=== PATIENT | male | born 1955 | race Caucasian/White ===

== ENCOUNTER 2017-06-11 06:45 | Day surgery (SDC) | payer BC ==
[~2017-06-11 06:45] MED LIST: Lactated Ringers 1,000 ML IV SCH
[2017-06-11] MEDS ORDERED: Propofol 200 MG/20 ML SDV IV ONE (08:00)
[2017-06-11] MEDS ORDERED: Midazolam 1 MG/ML 2 ML SDV IV ONE (08:00)
--- NOTE | 2017-06-11 08:31 | PCM.OPNOTE ---
- General Post-Op/Procedure Note Date of Surgery/Procedure: 06/11/17 Operative Procedure(s): c scope with bx Findings: rectal polyp sigmoid diverticulosis Pre Op Diagnosis: hx of colon polyps Post-Op Diagnosis: rectal polyp. sigmoid diverticulosis Anesthesia Technique: MAC Primary Surgeon: Lawson Lantigua Anesthesia Provider: Kiersetn Núñez Pathology: rectal polyp Complications: None Condition: Good Free Text/Narrative:: see dictation
--- NOTE | 2017-06-11 08:57 | OR ---
DATE OF OPERATION: 06/11/2017 SURGEON: Lawson Lantigua MD PROCEDURE PERFORMED: Colonoscopy with cold forceps biopsy. PREOPERATIVE DIAGNOSIS: History of colon polyps. POSTOPERATIVE DIAGNOSIS: Rectal polyp and sigmoid diverticulosis. INDICATIONS FOR PROCEDURE: This 61-year-old white male presents for a followup colonoscopy, has a personal history of adenomatous colon polyps. He was offered and accepted C scope. DESCRIPTION OF OPERATION: After an excellent IV sedation was administered, digital rectal exam was performed. No marked abnormality was noted. Flexible colonoscope was inserted and advanced without difficulty to the cecum. The prep was excellent. The following findings were noted. Ascending colon, unremarkable. Transverse colon, unremarkable. Descending colon, unremarkable. Sigmoid, mild diverticulosis. Rectum; at the distal rectum, small polypoid lesion biopsied with cold biopsy forceps and sent for permanent. The colon was deflated as the scope was removed. The patient tolerated the procedure well, and was taken to recovery room in good condition. /[id number] KELSY/AMAN
== END 2017-06-11 09:53 | disposition home or self-care (01) ==
LOC: FB.SDS 06:45
PROVIDERS: ATTEND Surgery
DX: Z12.11 Encounter for screening for malignant neoplasm of colon (principal); K62.1 Rectal polyp; K57.30 Diverticulosis of large intestine without perforation or abscess without bleeding; I25.10 Atherosclerotic heart disease of native coronary artery without angina pectoris; E11.9 Type 2 diabetes mellitus without complications; I10 Essential (primary) hypertension; E78.00 Pure hypercholesterolemia, unspecified; E66.9 Obesity, unspecified; Z95.1 Presence of aortocoronary bypass graft; Z86.010 Personal history of colon polyps; Z98.890 Other specified postprocedural states; Z87.891 Personal history of nicotine dependence; Z79.899 Other long term (current) drug therapy
CPT/HCPCS: 45380; 82962; 88305; 93005; J2250; J2704; J7120

== ENCOUNTER 2020-05-10 06:46 | Day surgery (SDC) | payer MEDICARE, BC ==
[~2020-05-10 06:46] MED LIST changes: +Sodium Chloride 0.9% 10 ML Syringe FLUSH PRN
[2020-05-10] MEDS ORDERED: ePHEDrine 50 MG/ML SDV IV ONE (06:47)
[2020-05-10] MEDS ORDERED: Midazolam 1 MG/ML 2 ML SDV IV ONE (06:47)
[2020-05-10] MEDS ORDERED: Propofol 200 MG/20 ML SDV IV ONE (06:47)
[2020-05-10] MEDS ORDERED: Ondansetron 4 MG/2 ML SDV IVPUSH ONE (06:47)
[2020-05-10] MEDS ORDERED: Phenylephrine 1% 10 MG/ML SDV IV ONE (06:47)
[2020-05-10] MEDS ORDERED: fentaNYL 100 MCG/2 ML SDV IV ONE (06:47)
[2020-05-10] MEDS ORDERED: Lidocaine 1% PF 2 ML SDV INJECT ONE (06:47)
[2020-05-10] MEDS ORDERED: Sodium Chloride 0.9% 10 ML Syringe IV ONE (06:47)
[2020-05-10] MEDS ORDERED: Dexmedetomidine 200 MCG/2 ML SDV IV ONE (06:47)
[2020-05-10] MEDS ORDERED: ceFAZolin 2 GM in Premix Bag 1 BAG IV ONE (08:00)
[2020-05-10] MEDS ORDERED: Lidocaine 1% with EPINEPHrine 1:100,000 20 ML MDV INJECT ONE (08:18)
[2020-05-10] MEDS ORDERED: Bupivacaine 0.5% 30 ML SDV INJECT ONE (08:18)
--- NOTE | 2020-05-10 08:58 | PCM.OPNOTE ---
- General Post-Op/Procedure Note Date of Surgery/Procedure: 05/10/20 ( ) Operative Procedure(s): rih repair Findings: indirect hernia cord lipoma Pre Op Diagnosis: rih without obstruction or gangrene Post-Op Diagnosis: Same Anesthesia Technique: Local (10 ml 1 % lido with epi/0.5% buvipicaine), MAC Primary Surgeon: Lawson Lantigua Anesthesia Provider: Taylor Newman Pathology: cord lipoma EBL in mLs: 5 Complications: None Condition: Good Free Text/Narrative:: #[id number] see dictation
[2020-05-10] MEDS ORDERED: Acetaminophen/HYDROcodone 325-5 MG Tab PO PRN (09:23)
--- NOTE | 2020-05-10 10:44 | OR ---
DATE OF OPERATION: 05/10/2020 SURGEON: Lawson Lantigua MD PROCEDURE PERFORMED: Right inguinal hernia. PREOPERATIVE DIAGNOSIS: Indirect right inguinal hernia. POSTOPERATIVE DIAGNOSIS: Indirect right inguinal hernia. INDICATIONS FOR PROCEDURE: This is a 64-year-old white male, who is referred with some groin discomfort. While he did not have a palpable inguinal hernia on CT scan, he was noted to have a small fat-filled hernia. He was offered and accepted a repair. INTRAOPERATIVE FINDINGS: 1. 10 mL of 1:1 mixture of 1% lidocaine with epinephrine and 0.5% bupivacaine was used to infiltrate our surgical site. 2. The defect was repaired with a Phasix plug and patch, size large, reference number [id number], lot number [id number], expiration date 08/11/2021. DESCRIPTION OF OPERATION: After an excellent LMA anesthetic was administered, the patient was prepped and draped in the usual sterile manner. Our local was used to infiltrate the planned incision site, which basically involved the line that intercepted the inguinal ligament approximately custodial between the anterior-superior iliac spine and the symphysis pubis. A small skin wheal was then raised medially to the anterior-superior iliac spine and a deep intramuscular injection was carried out. Local was then infiltrated from this site to the direction of the umbilicus and down below and along the inguinal ligament to create a field block. A 5 cm incision was then made. Underlying subcu fat was divided using electrocautery. Superficial inferior epigastric vessels were clamped, divided, and tied with 2-0 Vicryl ties. The aponeurosis of the external oblique was exposed. More local was infiltrated. A ibeth was made in the aponeurosis and carried out through the external ring. The ilioinguinal nerve or a branch thereof appeared to be running along the cord. Care was taken not to injure it. The cord was then mobilized and controlled with 1 inch Paddy drain. The cord was skeletonized. A small inguinal hernia sac was identified and reduced. The patient also had a cord lipoma which was dissected down to its base, clamped, divided, and tied with 2-0 Vicryl ties. This was passed off the field for pathologic examination. The plug was then inserted into the internal ring, tacked into position with three 3-0 Vicryls. The overlay patch was then measured, laid on the floor of the inguinal canal with a keyhole cut for the spermatic cord. The nerve that was running along the spermatic cord had some fat imbricated to prevent the nerve from rubbing up against the mesh. Superiorly, there was another small branch of the nerve, presumably the general femoral that would be encompassed by the mesh and this was clamped, divided, and tied with 2-0 Vicryl tie to prevent neuroma formation. The inferior aspect of the mesh was then suture ligated to the inguinal ligament. A vertical keyhole, which had been cut for the internal ring, was then used to recreate the internal ring, and this was closed with a running 2-0 Vicryl as well. SorbaFix was used to fix the mesh to the floor of the inguinal canal. The area was irrigated and after assuring excellent hemostasis, the aponeurosis was closed with a running 3-0 Vicryl. 3-0 Vicryl was used to approximate Dallin's fascia and a running subcu 4-0 Vicryl was used to close the skin. Needle, sponge, and instrument counts were reported as correct. The patient was taken to recovery in good condition. /[id number] /MODL
== END 2020-05-10 11:15 | disposition home or self-care (01) ==
LOC: FB.SDS 06:46
PROVIDERS: ATTEND Surgery
DX: K40.90 Unilateral inguinal hernia, without obstruction or gangrene, not specified as recurrent (principal); I10 Essential (primary) hypertension; I25.10 Atherosclerotic heart disease of native coronary artery without angina pectoris; F17.210 Nicotine dependence, cigarettes, uncomplicated; Z79.899 Other long term (current) drug therapy; Z79.82 Long term (current) use of aspirin; Z98.890 Other specified postprocedural states
CPT/HCPCS: 00830; 49505; 94150; A9270; C1781; J0690; J2250; J2370; J2405; J2704; J3010; J3490; J7120; 88304

== ENCOUNTER 2023-02-24 06:19 | Day surgery (SDC) | payer MEDICARE, BC ==
[2023-02-24] MEDS ORDERED: Glycopyrrolate 0.2 MG/ML 5 ML MDV IV ONE (06:20)
[2023-02-24] MEDS ORDERED: Lidocaine 2% 5 ML SDV IV ONE (06:20)
[2023-02-24] MEDS ORDERED: Propofol 200 MG/20 ML SDV IV ONE (06:20)
[2023-02-24] MEDS ORDERED: Simethicone Drops 40 MG/0.6 ML 30 ML Bottle ONE (07:17)
== END 2023-02-24 09:17 | disposition home or self-care (01) ==
LOC: FB.SDS 06:19
PROVIDERS: ATTEND Surgery
DX: Z12.11 Encounter for screening for malignant neoplasm of colon (principal); D12.2 Benign neoplasm of ascending colon; D12.8 Benign neoplasm of rectum; K57.30 Diverticulosis of large intestine without perforation or abscess without bleeding; E11.9 Type 2 diabetes mellitus without complications; I25.10 Atherosclerotic heart disease of native coronary artery without angina pectoris; I10 Essential (primary) hypertension; E78.5 Hyperlipidemia, unspecified; E66.9 Obesity, unspecified; Z68.30 Body mass index [BMI] 30.0-30.9, adult; Z95.1 Presence of aortocoronary bypass graft; Z87.891 Personal history of nicotine dependence; Z79.82 Long term (current) use of aspirin; Z79.899 Other long term (current) drug therapy
CPT/HCPCS: 00811; 88305; A9270-GY; J2704; J3490; J7120

== ENCOUNTER 2024-06-03 06:18 | Day surgery (SDC) | payer MEDICARE, BC ==
[~2024-06-03 06:18] MED LIST changes: -Lactated Ringers 1,000 ML IV SCH
[2024-06-03] MEDS ORDERED: Glycopyrrolate 0.2 MG/ML 5 ML MDV IV ONE (06:19)
[2024-06-03] MEDS ORDERED: Propofol 200 MG/20 ML SDV IV ONE (06:19)
[2024-06-03] MEDS ORDERED: Lidocaine 2% 100 MG/5 ML Syringe IVPUSH ONE (06:19)
[2024-06-03] MEDS: Lactated Ringers 1,000 ML IV SCH (07:12)
[2024-06-03] MEDS: Simethicone Drops 40 MG/0.6 ML 30 ML Bottle ONE (07:38)
== END 2024-06-03 09:25 | disposition home or self-care (01) ==
LOC: FB.SDS 06:18
PROVIDERS: ATTEND Surgery
DX: Z12.11 Encounter for screening for malignant neoplasm of colon (principal); D12.2 Benign neoplasm of ascending colon; K63.5 Polyp of colon; K57.30 Diverticulosis of large intestine without perforation or abscess without bleeding; I25.10 Atherosclerotic heart disease of native coronary artery without angina pectoris; E11.9 Type 2 diabetes mellitus without complications; I10 Essential (primary) hypertension; E78.00 Pure hypercholesterolemia, unspecified; Z95.1 Presence of aortocoronary bypass graft; Z79.82 Long term (current) use of aspirin; Z79.899 Other long term (current) drug therapy; Z85.038 Personal history of other malignant neoplasm of large intestine
CPT/HCPCS: 45381; 45384; 45385; 88305; A9270; J1596; J2704; J7120; 00811; 99100